=== PATIENT | female | born 1985 | race Caucasian/White ===

== ENCOUNTER → 2022-12-12 | Outpatient (CLI) | payer OTHER ==
[2022-12-12 10:04] LABS: BASO % 0.3 % (0.0-1.0); EOS # 0.1 10^3/uL (0.0-0.5); EOS % 2.1 % (0.0-3.0); HEMATOCRIT 37.9 % (36.0-47.0); HEMOGLOBIN 12.7 g/dl (12.0-15.5); LYMPH # 1.9 10^3/uL (1.5-5.0); MEAN CORPUSCULAR HEMOGLOBIN 30.8 pg (27.0-33.0); MEAN CORPUSCULAR HGB CONC 33.5 g/dl (32.0-36.5); MONO # 0.4 10^3/uL (0.0-0.8); MONO % 7.1 % (2.0-8.0); NEUTROPHILS # 3.3 10^3/uL (1.5-8.5); NEUTROPHILS % 57.3 % (36.0-66.0); PLATELET COUNT, AUTOMATED 213 10^3/uL (150-450); RED BLOOD COUNT 4.12 10^6/uL (4.00-5.40); WHITE BLOOD COUNT 5.8 10^3/uL (4.0-10.0)
[2022-12-12 10:36] LABS: FREE T4 1.03 NG/DL (0.89-1.76); THYROID STIMULATING HORMONE 1.573 uIU/ML (0.55-4.78)
[2022-12-12 10:37] LABS: FERRITIN 7.4 NG/ML (7.3-270.7); FOLATE 21.38 NG/ML (>5.4); IRON (FE) 47 UG/DL (50-170); PERCENT SATURATION 14.8 % (13.2-45.0); TOTAL 25(OH) VITAMIN D 24.1 NG/ML (20.0-100.0); TOTAL IRON BINDING CAPACITY 317 UG/DL (250-425); VITAMIN B12 LEVEL 201 PG/ML (211-911)
[2022-12-12 10:38] LABS: ALBUMIN 3.7 G/DL (3.2-5.2); ALKALINE PHOSPHATASE 103 U/L (46-116); ALT/SGPT 20 U/L (7.0-40); AST/SGOT 16 U/L (<34); BILIRUBIN,TOTAL 0.4 MG/DL (0.3-1.2); BLOOD UREA NITROGEN 13 MG/DL (9-23); CALCIUM LEVEL 8.9 MG/DL (8.5-10.1); CARBON DIOXIDE LEVEL 29 MMOL/L (20-31); CHLORIDE LEVEL 108 MMOL/L (98-107); CHOLESTEROL LEVEL 139 MG/DL (<200); CHOLESTEROL RISK RATIO 2.18 (<5); CREATININE FOR GFR 0.79 MG/DL (0.55-1.30); GLOMERULAR FILTRATION RATE > 60.0 (>60); GLUCOSE, FASTING 76 MG/DL (60-100); HDL CHOLESTEROL 63.6 MG/DL (>40); LDL CHOLESTEROL 67.8 MG/DL (<100); NON-HDL-C 75.4 MG/DL; POTASSIUM SERUM 3.9 MMOL/L (3.5-5.1); SODIUM LEVEL 142 MMOL/L (136-145); TOTAL PROTEIN 6.9 G/DL (5.7-8.2); TRIGLYCERIDES LEVEL 38 MG/DL (<150)
== END ==
LOC: M WUC 08:23
PROVIDERS: ATTEND Nurse Practitioner Adult Health
DX: Z13.220 Encounter for screening for lipoid disorders (principal); Z13.29 Encounter for screening for other suspected endocrine disorder; Z13.0 Encounter for screening for diseases of the blood and blood-forming organs and certain disorders involving the immune mechanism; K59.00 Constipation, unspecified

== ENCOUNTER → 2023-03-31 | Outpatient (CLI) | payer OTHER ==
[2023-03-31 12:54] LABS: PERCENT SATURATION 28.2 % (13.2-45.0)
[2023-03-31 12:55] LABS: TOTAL 25(OH) VITAMIN D 18.8 NG/ML (20.0-100.0)
[2023-03-31 12:56] LABS: FOLATE 14.62 NG/ML (>5.4)
== END ==
LOC: M WUC 10:12
PROVIDERS: ATTEND Nurse Practitioner Adult Health
DX: D50.9 Iron deficiency anemia, unspecified (principal); D51.9 Vitamin B12 deficiency anemia, unspecified; E55.9 Vitamin D deficiency, unspecified

== ENCOUNTER → 2023-09-30 | Outpatient (REF) | payer OTHER ==
[2023-09-30 14:22] LABS: BASO % 0.4 % (0.0-1.0); EOS # 0.3 10^3/uL (0.0-0.5); EOS % 3.2 % (0.0-3.0); HEMATOCRIT 42.9 % (36.0-47.0); HEMOGLOBIN 14.4 g/dl (12.0-15.5); LYMPH # 2.6 10^3/uL (1.5-5.0); LYMPH % 25.6 % (24.0-44.0); MEAN CORPUSCULAR HEMOGLOBIN 31.9 pg (27.0-33.0); MEAN CORPUSCULAR HGB CONC 33.6 g/dl (32.0-36.5); MEAN CORPUSCULAR VOLUME 95.1 fl (80.0-96.0); MONO # 0.6 10^3/uL (0.0-0.8); MONO % 5.5 % (2.0-8.0); NEUTROPHILS # 6.5 10^3/uL (1.5-8.5); PLATELET COUNT, AUTOMATED 232 10^3/uL (150-450); RED BLOOD COUNT 4.51 10^6/uL (4.00-5.40)
[2023-09-30 14:54] LABS: IRON (FE) 78 UG/DL (50-170); PERCENT SATURATION 30.4 % (13.2-45.0); TOTAL IRON BINDING CAPACITY 257 UG/DL (250-425)
[2023-09-30 14:58] LABS: FERRITIN 99.6 NG/ML (7.3-270.7)
[2023-09-30 14:59] LABS: FOLATE > 24.0 NG/ML (>5.4); VITAMIN B12 LEVEL 684 PG/ML (211-911)
== END ==
LOC: M LABWUC 13:34
PROVIDERS: ATTEND Family Medicine
DX: D50.9 Iron deficiency anemia, unspecified (principal); D51.9 Vitamin B12 deficiency anemia, unspecified; K62.5 Hemorrhage of anus and rectum

== ENCOUNTER 2023-12-23 10:22 | Day surgery (SDC) | payer OTHER ==
[~2023-12-23] VITALS: Ht 154.9 cm; Wt 90.4 kg
[~2023-12-23 10:22] MED LIST: THERTAB52 PO
[2023-12-23] MEDS ORDERED: propofoL 200 MG/20 ML VIAL As Ordered ONE (12:08)
[2023-12-23 12:42] VITALS: TEMP 98.1
[2023-12-23 13:10] VITALS: BP 110/58; O2SAT 98
== END 2023-12-23 13:20 | disposition home or self-care (01) ==
LOC: M OPP 10:22
PROVIDERS: ATTEND Internal Medicine Gastroenterology
DX: K57.31 Diverticulosis of large intestine without perforation or abscess with bleeding (principal); D50.9 Iron deficiency anemia, unspecified; D12.0 Benign neoplasm of cecum; D12.1 Benign neoplasm of appendix; D12.4 Benign neoplasm of descending colon; K64.8 Other hemorrhoids; K64.4 Residual hemorrhoidal skin tags; K20.0 Eosinophilic esophagitis; R13.10 Dysphagia, unspecified; K29.50 Unspecified chronic gastritis without bleeding

== ENCOUNTER 2024-06-17 20:44 | Emergency (ER) | payer OTHER ==
[~2024-06-17] VITALS: Ht 154.9 cm; Wt 90.7 kg
[~2024-06-17 20:44] MED LIST changes: -CEFD300C PO; -FERR325T3 PO; -PROBCAP14 PO; -PROC1AER16 PR; -VITAMIN D PO
[2024-06-17] MEDS: ACETAMINOPHEN 500 MG TAB PO ONE (22:19)
[2024-06-17] MEDS: IBUPROFEN 800 MG TAB PO ONE (22:19)
[2024-06-17 22:45] LABS: BASO % 0.2 % (0.0-1.0); EOS % 0.4 % (0.0-3.0); HEMATOCRIT 39.2 % (36.0-47.0); HEMOGLOBIN 13.4 g/dl (12.0-15.5); LYMPH # 1.3 10^3/uL (1.5-5.0); LYMPH % 15.1 % (24.0-44.0); MEAN CORPUSCULAR HEMOGLOBIN 31.5 pg (27.0-33.0); MEAN CORPUSCULAR HGB CONC 34.2 g/dl (32.0-36.5); MEAN CORPUSCULAR VOLUME 92.2 fl (80.0-96.0); MONO % 11.3 % (2.0-8.0); NEUTROPHILS # 6.2 10^3/uL (1.5-8.5); NEUTROPHILS % 72.6 % (36.0-66.0); PLATELET COUNT, AUTOMATED 196 10^3/uL (150-450); RED BLOOD COUNT 4.25 10^6/uL (4.00-5.40); WHITE BLOOD COUNT 8.5 10^3/uL (4.0-10.0)
[2024-06-17 23:10] LABS: BLOOD UREA NITROGEN 10 MG/DL (9-23); CALCIUM LEVEL 9.1 MG/DL (8.5-10.1); CARBON DIOXIDE LEVEL 25 MMOL/L (20-31); CHLORIDE LEVEL 104 MMOL/L (98-107); CREATININE FOR GFR 0.84 MG/DL (0.55-1.30); GLOMERULAR FILTRATION RATE > 60.0 (>60); GLUCOSE, FASTING 94 MG/DL (60-100); POTASSIUM SERUM 4.1 MMOL/L (3.5-5.1); SODIUM LEVEL 135 MMOL/L (136-145)
[2024-06-18 00:10] LABS: CK-MB VALUE MASS < 1.0 NG/ML (<3.6)
[2024-06-18 00:15] LABS: CPK CREATINE PHOSPHOKINASE 72 U/L (34-145); MB/CK RELATIVE INDEX 1.38 (< OR =4)
[2024-06-18 00:52] LABS: HCG, SERUM QUALITATIVE NEGATIVE (NEGATIVE)
[2024-06-18 01:15] VITALS: TEMP 97.8
[2024-06-18] MEDS: cefTRIAXone SOD 1 GM in DEXTROSE 5% (D5W) ADV/MINI-BAG 50 ML IV ONE (01:19)
[2024-06-18] MEDS ORDERED: CEFD300C PO (01:53)
[2024-06-18 02:00] VITALS: BP 108/62; O2SAT 97
== END 2024-06-18 02:21 | disposition home or self-care (01) ==
LOC: M ED 20:44
DX: N10 Acute pyelonephritis (principal); B34.8 Other viral infections of unspecified site; R19.05 Periumbilic swelling, mass or lump; K57.32 Diverticulitis of large intestine without perforation or abscess without bleeding; Z79.2 Long term (current) use of antibiotics; Z79.899 Other long term (current) drug therapy
CPT/HCPCS: 71045; 74176; 80048; 81001; 82550; 82553; 84484; 84703; 85025; 87088; 87186; 87486; 87581; 87633; 87798; 93005; 96374; 99284; J0696

== ENCOUNTER → 2024-06-17 | Outpatient (REF) | payer OTHER ==
[~2024-06-17] MED LIST changes: +CEFD300C PO; +FERR325T3 PO; +PROBCAP14 PO; +PROC1AER16 PR; +VITAMIN D PO
== END ==
LOC: M LAB REF 10:38 → MERGE 10:38
PROVIDERS: ATTEND Nurse Practitioner Family
DX: J06.9 Acute upper respiratory infection, unspecified (principal); Z20.828 Contact with and (suspected) exposure to other viral communicable diseases

== ENCOUNTER → 2024-06-28 | Outpatient (REF) | payer OTHER ==
[~2024-06-28] MED LIST changes: +CEFD300C PO; +FERR325T3 PO; +PROBCAP14 PO; +PROC1AER16 PR; +VITAMIN D PO
== END ==
LOC: M LAB REF 16:58 → MERGE 16:58
PROVIDERS: ATTEND Nurse Practitioner Adult Health
DX: N89.8 Other specified noninflammatory disorders of vagina (principal); R30.0 Dysuria

== ENCOUNTER → 2024-07-19 | Outpatient (CLI) | payer OTHER ==
[2024-07-19 16:41] LABS: BASO % 0.5 % (0.0-1.0); EOS # 0.3 10^3/uL (0.0-0.5); EOS % 3.8 % (0.0-3.0); HEMATOCRIT 39.4 % (36.0-47.0); HEMOGLOBIN 13.3 g/dl (12.0-15.5); LYMPH # 2.3 10^3/uL (1.5-5.0); LYMPH % 28.9 % (24.0-44.0); MEAN CORPUSCULAR HEMOGLOBIN 30.9 pg (27.0-33.0); MEAN CORPUSCULAR HGB CONC 33.8 g/dl (32.0-36.5); MEAN CORPUSCULAR VOLUME 91.4 fl (80.0-96.0); MONO # 0.4 10^3/uL (0.0-0.8); MONO % 5.6 % (2.0-8.0); NEUTROPHILS # 4.8 10^3/uL (1.5-8.5); NEUTROPHILS % 60.9 % (36.0-66.0); PLATELET COUNT, AUTOMATED 212 10^3/uL (150-450); RED BLOOD COUNT 4.31 10^6/uL (4.00-5.40); WHITE BLOOD COUNT 7.9 10^3/uL (4.0-10.0)
[2024-07-19 17:02] LABS: TOTAL IRON BINDING CAPACITY 294 UG/DL (250-425)
[2024-07-19 17:03] LABS: ALBUMIN 3.8 G/DL (3.2-5.2); ALKALINE PHOSPHATASE 58 U/L (35-104); ALT/SGPT 33 U/L (7.0-40); AST/SGOT 19 U/L (<34); BILIRUBIN,TOTAL 0.4 MG/DL (0.3-1.2); BLOOD UREA NITROGEN 14 MG/DL (9-23); CALCIUM LEVEL 9.3 MG/DL (8.5-10.1); CARBON DIOXIDE LEVEL 27 MMOL/L (20-31); CHLORIDE LEVEL 107 MMOL/L (98-107); CREATININE FOR GFR 0.87 MG/DL (0.55-1.30); GLOMERULAR FILTRATION RATE > 60.0 (>60); GLUCOSE, FASTING 97 MG/DL (60-100); IRON (FE) 74 UG/DL (50-170); PERCENT SATURATION 25.2 % (13.2-45.0); POTASSIUM SERUM 3.9 MMOL/L (3.5-5.1); SODIUM LEVEL 142 MMOL/L (136-145); TOTAL PROTEIN 7.3 G/DL (5.7-8.2)
[2024-07-19 17:04] LABS: FOLATE 12.3 NG/ML (>5.4); VITAMIN B12 LEVEL 581 PG/ML (211-911)
[2024-07-19 17:49] LABS: HEMOGLOBIN A1c 4.8 % (4.0-6.0)
== END ==
LOC: M WUC 14:05
PROVIDERS: ATTEND Nurse Practitioner Adult Health
DX: D50.9 Iron deficiency anemia, unspecified (principal); E66.9 Obesity, unspecified; D51.9 Vitamin B12 deficiency anemia, unspecified

== ENCOUNTER → 2024-07-24 | Outpatient (CLI) | payer OTHER | LOC: M RAD 13:44 | PROVIDERS: ATTEND Nurse Practitioner Adult Health | DX: M25.561 Pain in right knee (principal); S86.901A Unspecified injury of unspecified muscle(s) and tendon(s) at lower leg level, right leg, initial encounter; X58.XXXA Exposure to other specified factors, initial encounter; Y92.9 Unspecified place or not applicable ==

== ENCOUNTER → 2024-08-16 | Outpatient (CLI) | payer OTHER ==
[~2024-08-16] MED LIST changes: +ISOVUE-370 76% 100ML VIAL As Ordered ONE
== END ==
LOC: M RAD 15:20
PROVIDERS: ATTEND Nurse Practitioner Adult Health
DX: N23 Unspecified renal colic (principal); R30.0 Dysuria
CPT/HCPCS: 74177; 87070; 87086; Q9967

== ENCOUNTER → 2024-09-28 | Outpatient (REF) | payer OTHER ==
[~2024-09-28] MED LIST changes: -ISOVUE-370 76% 100ML VIAL As Ordered ONE
== END ==
LOC: M LAB REF 17:06
PROVIDERS: ATTEND Nurse Practitioner Adult Health
DX: N89.8 Other specified noninflammatory disorders of vagina (principal)

== ENCOUNTER 2024-10-27 13:04 | Emergency (ER) | payer OTHER ==
[~2024-10-27] VITALS: Ht 154.9 cm; Wt 90.6 kg
[2024-10-27] MEDS: OMEPRAZOLE 20MG CAP PO ONE (17:20)
[2024-10-27] MEDS ORDERED: PRED10TA2 PO (18:50)
[2024-10-27 19:00] VITALS: BP 108/59; TEMP 97.8; O2SAT 97
== END 2024-10-27 19:00 | disposition home or self-care (01) ==
LOC: M ED 13:04
DX: K20.0 Eosinophilic esophagitis (principal); M47.812 Spondylosis without myelopathy or radiculopathy, cervical region; M47.814 Spondylosis without myelopathy or radiculopathy, thoracic region; M41.34 Thoracogenic scoliosis, thoracic region; L21.9 Seborrheic dermatitis, unspecified; Z79.2 Long term (current) use of antibiotics; Z79.899 Other long term (current) drug therapy; Z79.52 Long term (current) use of systemic steroids

== ENCOUNTER → 2024-11-11 | Outpatient (CLI) | payer OTHER ==
[~2024-11-11] MED LIST changes: +PRED10TA2 PO
== END ==
LOC: M RAD 15:41
PROVIDERS: ATTEND Nurse Practitioner Adult Health
DX: N83.292 Other ovarian cyst, left side (principal)

== ENCOUNTER 2024-12-14 11:25 | Day surgery (SDC) | payer OTHER ==
[~2024-12-14] VITALS: Ht 154.9 cm; Wt 86.5 kg
[~2024-12-14 11:25] MED LIST changes: +BUDE0.5S6 NEB; +LIDOCAINE 2% 100MG/5ML SDV (FOR ANES.) As Ordered ONE; +PANT40TA29 PO; +fentaNYL 100 MCG/2 ML INJECTION As Ordered ONE; +propofoL 200 MG/20 ML VIAL As Ordered ONE
[2024-12-14 12:58] VITALS: TEMP 97.2
[2024-12-14 13:20] VITALS: BP 144/78; O2SAT 100
== END 2024-12-14 13:25 | disposition home or self-care (01) ==
LOC: M OPP 11:25
PROVIDERS: ATTEND Internal Medicine Gastroenterology
DX: K22.89 Other specified disease of esophagus (principal); K21.00 Gastro-esophageal reflux disease with esophagitis, without bleeding; Z79.899 Other long term (current) drug therapy; J45.909 Unspecified asthma, uncomplicated
CPT/HCPCS: 43239; 88305; J3010

== ENCOUNTER → 2025-01-04 | Outpatient (REF) | payer OTHER ==
[~2025-01-04] MED LIST changes: -LIDOCAINE 2% 100MG/5ML SDV (FOR ANES.) As Ordered ONE; -fentaNYL 100 MCG/2 ML INJECTION As Ordered ONE; -propofoL 200 MG/20 ML VIAL As Ordered ONE
[2025-01-04 17:19] LABS: APPEARANCE, URINE HAZY (CLEAR); BACTERIA, URINE AUTO 1+ (NEGATIVE); BILIRUBIN, URINE AUTO NEGATIVE (NEGATIVE); BLOOD, URINE BLOOD NEGATIVE (NEGATIVE); COLOR, URINE YELLOW (YELLOW); GLUCOSE, URINE (UA) AUTO NEGATIVE (NEGATIVE); KETONE, URINE AUTO NEGATIVE (NEGATIVE); LEUKOCYTE ESTERASE, URINE AUTO NEGATIVE (NEGATIVE); MUCUS, URINE SMALL (NEGATIVE); NITRITE, URINE AUTO NEGATIVE (NEGATIVE); PROTEIN, URINE AUTO NEGATIVE (NEGATIVE); RBC, URINE AUTO 1 /HPF (0-3); SPECIFIC GRAVITY URINE AUTO 1.028 (1.002-1.035); SQUAMOUS EPITHELIAL CELL UR AU 5 /HPF (0-6); WBC, URINE AUTO 1 /HPF (0-3)
== END ==
LOC: M SMT 16:53
PROVIDERS: ATTEND Physician Assistant
DX: N39.0 Urinary tract infection, site not specified (principal)

== ENCOUNTER 2025-02-17 20:34 | Emergency (ER) | payer OTHER ==
[~2025-02-17] VITALS: Ht 154.9 cm; Wt 86.4 kg
[2025-02-17] MEDS: ACETAMINOPHEN 325 MG TAB PO ONE (21:39)
[2025-02-17 21:49] LABS: BASO # 0.0 10^3/uL (0.0-0.2); BASO % 0.5 % (0.0-1.0); EOS # 0.2 10^3/uL (0.0-0.5); EOS % 2.5 % (0.0-3.0); LYMPH # 1.8 10^3/uL (1.5-5.0); LYMPH % 21.7 % (24.0-44.0); MONO # 0.5 10^3/uL (0.0-0.8); MONO % 6.3 % (2.0-8.0); NEUTROPHILS # 5.8 10^3/uL (1.5-8.5); NEUTROPHILS % 68.8 % (36.0-66.0); PLATELET COUNT, AUTOMATED 241 10^3/uL (150-450)
[2025-02-17 22:12] LABS: CPK CREATINE PHOSPHOKINASE 150.0 U/L (34-145)
[2025-02-17 22:13] LABS: CALCIUM LEVEL 8.7 MG/DL (8.5-10.1); CARBON DIOXIDE LEVEL 28.0 MMOL/L (20-31); CHLORIDE LEVEL 105.0 MMOL/L (98-107); CREATININE FOR GFR 0.86 MG/DL (0.55-1.30); GLOMERULAR FILTRATION RATE 88.1 (>60); POTASSIUM SERUM 3.7 MMOL/L (3.5-5.1); SODIUM LEVEL 141.0 MMOL/L (136-145)
[2025-02-17 23:52] VITALS: TEMP 97.1
[2025-02-17] MEDS: ONDANSETRON 4MG 2ML VIAL IV ONE (23:55)
[2025-02-17] MEDS: KETOROLAC 30 MG/ML 1 ML VIAL IV ONE (23:55)
[2025-02-17 23:56] VITALS: BP 99/55; O2SAT 98
== END 2025-02-18 00:04 | disposition home or self-care (01) ==
LOC: M ED 20:34
DX: M79.652 Pain in left thigh (principal); J45.909 Unspecified asthma, uncomplicated; K21.9 Gastro-esophageal reflux disease without esophagitis; D50.9 Iron deficiency anemia, unspecified
CPT/HCPCS: 80048; 82550; 85025; 93041; 93971; 96374; 99284; J1885; J2405

== ENCOUNTER → 2025-03-17 | Outpatient (REF) | payer OTHER | LOC: M LAB REF 15:05 | PROVIDERS: ATTEND Nurse Practitioner Adult Health | DX: J02.9 Acute pharyngitis, unspecified (principal) ==

== ENCOUNTER → 2025-05-10 | Outpatient (CLI) | payer OTHER ==
[2025-05-10 19:59] LABS: PLATELET COUNT, AUTOMATED 289 10^3/uL (150-450)
[2025-05-10 20:30] LABS: HCG, SERUM QUANTITATIVE < 2.6 MIU/ML (<4.2)
[2025-05-10 20:31] LABS: TESTOSTERONE 17 NG/DL (14-76); TOTAL 25(OH) VITAMIN D 28.4 NG/ML (20.0-100.0)
[2025-05-10 20:33] LABS: ESTRADIOL 67.7 PG/ML; PROLACTIN 6.42 NG/ML
[2025-05-10 20:34] LABS: ALT/SGPT 37 U/L (7.0-40); AST/SGOT 26 U/L (<34); CALCIUM LEVEL 8.9 MG/DL (8.5-10.1); CARBON DIOXIDE LEVEL 26 MMOL/L (20-31); CHLORIDE LEVEL 105 MMOL/L (98-107); CREATININE FOR GFR 0.80 MG/DL (0.55-1.30); GLOMERULAR FILTRATION RATE > 90.0 (>60); LUTEINIZING HORMONE 6.8 mIU/ML; POTASSIUM SERUM 4.0 MMOL/L (3.5-5.1); SODIUM LEVEL 138 MMOL/L (136-145)
[2025-05-10 20:35] LABS: FREE T4 1.25 NG/DL (0.89-1.76)
[2025-05-10 20:36] LABS: ESTIMATED AVERAGE GLUCOSE 103.0 MG/DL (60-110); PROGESTERONE 0.40 NG/ML
[2025-05-10 20:57] LABS: HIV 1&2 SCREEN NEGATIVE (NEGATIVE)
[2025-05-10 21:05] LABS: HEPATITIS C VIRUS ABY INDEX 0.06 INDEX (<0.8)
== END ==
LOC: M LAB 15:03
PROVIDERS: ATTEND Obstetrics & Gynecology Reproductive Endocrinology
DX: Z31.41 Encounter for fertility testing (principal)

== ENCOUNTER → 2025-05-11 | Outpatient (REF) | payer OTHER ==
[2025-05-13 14:37] LABS: HPV APTIMA Not Detected (Not Detected)
== END ==
LOC: M PLALAB 09:41
PROVIDERS: ATTEND Physician Assistant
DX: Z12.4 Encounter for screening for malignant neoplasm of cervix (principal)
CPT/HCPCS: 87624; G0123

== ENCOUNTER 2025-05-29 16:09 | Emergency (ER) | payer OTHER ==
[~2025-05-29] VITALS: Ht 154.9 cm; Wt 92.5 kg
[2025-05-29 17:47] LABS: BASO # 0.0 10^3/uL (0.0-0.2); BASO % 0.4 % (0.0-1.0); EOS # 0.1 10^3/uL (0.0-0.5); EOS % 1.6 % (0.0-3.0); LYMPH # 1.3 10^3/uL (1.5-5.0); LYMPH % 26.7 % (24.0-44.0); MONO # 0.5 10^3/uL (0.0-0.8); MONO % 9.5 % (2.0-8.0); NEUTROPHILS # 3.0 10^3/uL (1.5-8.5); NEUTROPHILS % 61.6 % (36.0-66.0); PLATELET COUNT, AUTOMATED 255 10^3/uL (150-450)
[2025-05-29 18:06] LABS: KETONE, URINE AUTO RFX TRACE mg/dL (NEGATIVE); LEUKOCYTE ESTERASE UR AUTO RFX NEGATIVE (NEGATIVE); MUCUS, URINE RFX SMALL (NEGATIVE); NITRITE, URINE AUTO RFX NEGATIVE (NEGATIVE); RBC, URINE AUTO RFX 2 /HPF (0-3); SQUAM EPITHELIAL CELL UR AURFX 24 /HPF (0-6); WBC, URINE AUTO RFX 2 /HPF (0-3)
[2025-05-29 18:10] LABS: HCG, SERUM QUALITATIVE NEGATIVE (NEGATIVE)
[2025-05-29 18:25] LABS: ALT/SGPT 49 U/L (7.0-40); AST/SGOT 50 U/L (<34); CALCIUM LEVEL 8.8 MG/DL (8.5-10.1); CARBON DIOXIDE LEVEL 23 MMOL/L (20-31); CHLORIDE LEVEL 107 MMOL/L (98-107); CREATININE FOR GFR 0.72 MG/DL (0.55-1.30); GLOMERULAR FILTRATION RATE > 90.0 (>60); POTASSIUM SERUM 4.6 MMOL/L (3.5-5.1); SODIUM LEVEL 140 MMOL/L (136-145)
[2025-05-29] MEDS: cefTRIAXone SOD 1 GM in DEXTROSE 5% (D5W) ADV/MINI-BAG 50 ML IV ONE (18:43)
[2025-05-29] MEDS: KETOROLAC 30 MG/ML 1 ML VIAL IV ONE (18:43)
[2025-05-29] MEDS ORDERED: CEFD1CAP9 PO (19:47)
[2025-05-29] MEDS ORDERED: IBUP600T42 PO (19:47)
[2025-05-29 20:08] VITALS: BP 108/61; TEMP 98.5; O2SAT 98
== END 2025-05-29 20:09 | disposition home or self-care (01) ==
LOC: M ED 16:09
DX: N39.0 Urinary tract infection, site not specified (principal); M54.50 Low back pain, unspecified; R10.9 Unspecified abdominal pain; K76.0 Fatty (change of) liver, not elsewhere classified; K76.89 Other specified diseases of liver; Z79.1 Long term (current) use of non-steroidal anti-inflammatories (NSAID); Z79.2 Long term (current) use of antibiotics
CPT/HCPCS: 74176; 80048; 80076; 81001; 83690; 84703; 85025; 96365; 96375; 99284; J0696; J1885

== ENCOUNTER → 2025-06-10 | Outpatient (CLI) | payer OTHER ==
[~2025-06-10] MED LIST changes: +CEFD1CAP9 PO; +IBUP600T42 PO
[2025-06-10 07:30] LABS: HCG, SERUM QUANTITATIVE < 2.6 MIU/ML (<4.2)
[2025-06-10 07:34] LABS: LUTEINIZING HORMONE 5.8 mIU/ML
[2025-06-10 07:35] LABS: ESTRADIOL 60.9 PG/ML; PROGESTERONE 0.43 NG/ML
[2025-06-14 23:23] LABS: ANTI MULLERIAN HORMONE 3.89 ng/mL (0.18-5.68)
== END ==
LOC: M LAB 06:24
PROVIDERS: ATTEND Obstetrics & Gynecology Reproductive Endocrinology
DX: Z31.83 Encounter for assisted reproductive fertility procedure cycle (principal)

== ENCOUNTER → 2025-06-15 | Outpatient (CLI) | payer OTHER ==
[2025-06-15 10:06] LABS: PROGESTERONE 0.49 NG/ML
[2025-06-15 10:07] LABS: ESTRADIOL 1871.4 PG/ML; LUTEINIZING HORMONE 4.3 mIU/ML
== END ==
LOC: M RAD 08:38
PROVIDERS: ATTEND Obstetrics & Gynecology Reproductive Endocrinology
DX: Z31.83 Encounter for assisted reproductive fertility procedure cycle (principal); D25.1 Intramural leiomyoma of uterus

== ENCOUNTER → 2025-06-17 | Outpatient (CLI) | payer OTHER ==
[2025-06-17 08:12] LABS: LUTEINIZING HORMONE 3.8 mIU/ML; PROGESTERONE 1.01 NG/ML
[2025-06-17 08:31] LABS: ESTRADIOL 3577.5 PG/ML
== END ==
LOC: M RAD 07:05
PROVIDERS: ATTEND Obstetrics & Gynecology Reproductive Endocrinology
DX: Z31.83 Encounter for assisted reproductive fertility procedure cycle (principal); N83.01 Follicular cyst of right ovary; N83.02 Follicular cyst of left ovary

== ENCOUNTER → 2025-06-28 | Outpatient (REF) | payer OTHER ==
[~2025-06-28] MED LIST changes: +FLUC150T9 PO; +LEVO1TAB38 PO; +PRENTAB45 PO
== END ==
LOC: M LAB REF 16:56
PROVIDERS: ATTEND Family Medicine
DX: R30.0 Dysuria (principal)

== ENCOUNTER 2025-06-29 07:37 | Emergency (ER) | payer OTHER ==
[~2025-06-29] VITALS: Ht 154.9 cm; Wt 93.3 kg
[~2025-06-29 07:37] MED LIST changes: -FLUC150T9 PO; -LEVO1TAB38 PO; -PRENTAB45 PO
[2025-06-29] MEDS ORDERED: PRENTAB45 PO (07:46)
[2025-06-29 08:34] LABS: BASO # 0.0 10^3/uL (0.0-0.2); BASO % 0.3 % (0.0-1.0); EOS # 0.2 10^3/uL (0.0-0.5); EOS % 1.7 % (0.0-3.0); LYMPH # 1.7 10^3/uL (1.5-5.0); LYMPH % 18.9 % (24.0-44.0); MONO # 0.5 10^3/uL (0.0-0.8); MONO % 5.1 % (2.0-8.0); NEUTROPHILS # 6.7 10^3/uL (1.5-8.5); NEUTROPHILS % 73.6 % (36.0-66.0); PLATELET COUNT, AUTOMATED 303 10^3/uL (150-450)
[2025-06-29] MEDS: IPRATROPIUM 0.5 MG/ALBUTEROL 2.5 MG INH SOL UD 3 ML NEB ONE (08:40)
[2025-06-29] MEDS ORDERED: FLUC150T9 PO (08:42)
[2025-06-29] MEDS ORDERED: LEVO1TAB38 PO (08:42)
[2025-06-29] MEDS ORDERED: HOME MED LIST COMPLETE! XX SCH (08:45)
[2025-06-29 09:01] LABS: ALT/SGPT 24 U/L (7.0-40); AST/SGOT 20 U/L (<34); CALCIUM LEVEL 8.5 MG/DL (8.5-10.1); CARBON DIOXIDE LEVEL 24 MMOL/L (20-31); CHLORIDE LEVEL 104 MMOL/L (98-107); CREATININE FOR GFR 0.73 MG/DL (0.55-1.30); GLOMERULAR FILTRATION RATE > 90.0 (>60); POTASSIUM SERUM 3.9 MMOL/L (3.5-5.1); SODIUM LEVEL 138 MMOL/L (136-145)
[2025-06-29 09:04] LABS: HCG, SERUM QUALITATIVE NEGATIVE (NEGATIVE)
[2025-06-29 09:37] VITALS: O2SAT 99
[2025-06-29 09:48] VITALS: BP 105/57; TEMP 97.3
== END 2025-06-29 09:55 | disposition home or self-care (01) ==
LOC: M ED 07:37
DX: R06.02 Shortness of breath (principal); R53.81 Other malaise; J45.909 Unspecified asthma, uncomplicated; Z79.899 Other long term (current) drug therapy

== ENCOUNTER → 2025-07-11 | Outpatient (CLI) | payer OTHER ==
[~2025-07-11] MED LIST changes: +FLUC150T9 PO; +LEVO1TAB38 PO; +PRENTAB45 PO
== END ==
LOC: M WHC 14:59
PROVIDERS: ATTEND Physician Assistant
DX: Z12.31 Encounter for screening mammogram for malignant neoplasm of breast (principal)

== ENCOUNTER 2025-07-24 10:09 | Emergency (ER) | payer OTHER ==
[~2025-07-24] VITALS: Ht 154.9 cm; Wt 94.8 kg
[2025-07-24 10:52] LABS: BASO # 0.1 10^3/uL (0.0-0.2); BASO % 0.7 % (0.0-1.0); EOS # 0.2 10^3/uL (0.0-0.5); EOS % 2.8 % (0.0-3.0); LYMPH # 1.8 10^3/uL (1.5-5.0); LYMPH % 27.2 % (24.0-44.0); MONO # 0.5 10^3/uL (0.0-0.8); MONO % 6.7 % (2.0-8.0); NEUTROPHILS # 4.2 10^3/uL (1.5-8.5); NEUTROPHILS % 62.5 % (36.0-66.0); PLATELET COUNT, AUTOMATED 264 10^3/uL (150-450)
[2025-07-24] MEDS: NS (Normal Saline) 0.9% 1,000 ML IV SCH (11:05)
[2025-07-24 11:17] LABS: CALCIUM LEVEL 8.9 MG/DL (8.5-10.1); CARBON DIOXIDE LEVEL 24 MMOL/L (20-31); CHLORIDE LEVEL 108 MMOL/L (98-107); CREATININE FOR GFR 0.72 MG/DL (0.55-1.30); GLOMERULAR FILTRATION RATE > 90.0 (>58); POTASSIUM SERUM 3.8 MMOL/L (3.5-5.1); SODIUM LEVEL 140 MMOL/L (136-145)
[2025-07-24] MEDS ORDERED: ISOVUE-370 76% 100 ML VIAL As Ordered ONE (11:57)
[2025-07-24 13:00] VITALS: BP 125/60; TEMP 98.3; O2SAT 97
[2025-07-24] MEDS ORDERED: IBUP600T42 PO (13:03)
== END 2025-07-24 13:17 | disposition home or self-care (01) ==
LOC: M ED 10:09
DX: R07.89 Other chest pain (principal); J45.909 Unspecified asthma, uncomplicated; Z79.1 Long term (current) use of non-steroidal anti-inflammatories (NSAID); Z79.899 Other long term (current) drug therapy
CPT/HCPCS: 36415; 71275; 80048; 84484; 85025; 93005; 99284; Q9967

== ENCOUNTER → 2025-08-04 | Outpatient (CLI) | payer OTHER ==
[2025-08-04 10:03] LABS: HCG, SERUM QUANTITATIVE < 2.6 MIU/ML (<4.2)
[2025-08-04 10:07] LABS: LUTEINIZING HORMONE 6.6 mIU/ML
[2025-08-04 10:08] LABS: ESTRADIOL 70.3 PG/ML; PROGESTERONE 0.38 NG/ML
== END ==
LOC: M RAD 08:31
PROVIDERS: ATTEND Obstetrics & Gynecology Reproductive Endocrinology
DX: Z31.83 Encounter for assisted reproductive fertility procedure cycle (principal)

== ENCOUNTER → 2025-08-09 | Outpatient (CLI) | payer OTHER | LOC: M WHC 14:40 | PROVIDERS: ATTEND Physician Assistant | DX: R92.8 Other abnormal and inconclusive findings on diagnostic imaging of breast (principal) | CPT/HCPCS: 77065; G0279 ==